=== PATIENT | female | born 1960 | race Caucasian/White ===

== ENCOUNTER → 2018-01-09 07:26 | Outpatient (CLI) | payer MEDICARE, SELFPAY ==
--- NOTE | 2018-01-09 07:44 | MRI_ITS ---
STUDY: MRI BRAIN WITH AND WITHOUT CONTRAST (ATTENTION INTERNAL AUDITORY CANALS - I.A.C.'s) REASON FOR EXAM: Female, 57 years old. ataxia, headache, tinnitus, nki; x 3 wks. TECHNIQUE: Standardized multiplanar fat and water weighted pulse sequences were obtained. 7 ml of Gadavist contrast material was administered intravenously for the contrast portion of the examination. COMPARISON: None. FINDINGS: Normal bilateral temporal bones. Normal bilateral internal auditory canals. There is no demonstrated intracanalicular or cisternal vestibular schwannoma (acoustic neuroma). There is no enhancement of the bilateral VIIth or VIIIth cranial nerves. Normal bilateral cochlea, vestibules and semicircular canals. Normal size of the ventricles and extra-axial spaces for the patient's age. Normal white matter tracts of the supratentorial brain. Normal bilateral basal ganglia. Normal thalami. Normal flow voids within the major intracranial circulation suggesting patency by spin echo criteria. Normal venous enhancement. There is no enhancing intra-axial or extra-axial abnormality. There is no extra-axial fluid accumulation. Normal sella turcica, pituitary gland, infundibular stalk, optic chiasm and hypothalamus. Normal tectal plate and pineal gland. Normal midbrain, hoda and medulla. Normal cerebellum. Normal basal cisterns. No demonstrated orbital abnormality, within the constraints of a routine brain study. Normal visualized paranasal sinuses. Normal calvarium and skull base. Normal visualized soft tissue structures. Normal visualized upper cervical spine. MRI/Brain W/WO Contrast IMPRESSION: Unremarkable unenhanced and enhanced MRI of the bilateral internal auditory canals (I.A.C's). Electronically Signed: Jose Wheeler MD at 7:25 EST Tel , Service support ,
== END ==
PROVIDERS: Family Provider Family Medicine; PCP Family Medicine; Visit Provider Otolaryngology Otolaryngology/Facial Plastic Surgery
DX: R27.0 Ataxia, unspecified (principal)
CPT/HCPCS: 70553; A9585

== ENCOUNTER → 2018-01-17 13:24 | Outpatient (CLI) | payer OTHER, SELFPAY ==
[2018-01-17 14:27] LABS: Amphetamine Urine VISTA NEGATIVE (<1000 ng/mL); Barbiturate Urine VISTA NEGATIVE (< 200 ng/mL); Benzodiazepine Urine VISTA NEGATIVE (< 200 ng/mL); Cocaine Urine VISTA NEGATIVE (< 300 ng/mL); Ecstacy Urine VISTA NEGATIVE (< 500 ng/mL); Methadone Urine VISTA NEGATIVE (< 300 ng/mL); PCP Urine VISTA NEGATIVE (< 25 ng/mL); THC Urine VISTA NEGATIVE (< 50 ng/mL); Vista UDS pH Range 5
== END ==
PROVIDERS: Family Provider Family Medicine; PCP Family Medicine; Visit Provider Anesthesiology Pain Medicine
DX: S30.0XXA Contusion of lower back and pelvis, initial encounter (principal); S32.2XXA Fracture of coccyx, initial encounter for closed fracture; M99.04 Segmental and somatic dysfunction of sacral region
CPT/HCPCS: 80307

== ENCOUNTER → 2018-06-04 16:18 | Outpatient (CLI) | payer OTHER, SELFPAY ==
[2018-06-04 18:10] LABS: Amphetamine Urine VISTA NEGATIVE (<1000 ng/mL); Barbiturate Urine VISTA NEGATIVE (< 200 ng/mL); Benzodiazepine Urine VISTA NEGATIVE (< 200 ng/mL); Cocaine Urine VISTA NEGATIVE (< 300 ng/mL); Ecstacy Urine VISTA NEGATIVE (< 500 ng/mL); Methadone Urine VISTA NEGATIVE (< 300 ng/mL); PCP Urine VISTA NEGATIVE (< 25 ng/mL); THC Urine VISTA POSITIVE (< 50 ng/mL); Vista UDS pH Range 5
== END ==
PROVIDERS: Family Provider Family Medicine; PCP Family Medicine; Visit Provider Anesthesiology Pain Medicine
DX: S30.0XXA Contusion of lower back and pelvis, initial encounter (principal); M99.04 Segmental and somatic dysfunction of sacral region; S32.2XXA Fracture of coccyx, initial encounter for closed fracture; F11.20 Opioid dependence, uncomplicated
CPT/HCPCS: 80307

== ENCOUNTER → 2018-09-09 12:40 | Outpatient (CLI) | payer OTHER, SELFPAY ==
[2018-09-09 13:51] LABS: Amphetamine Urine VISTA NEGATIVE (<1000 ng/mL); Barbiturate Urine VISTA NEGATIVE (< 200 ng/mL); Benzodiazepine Urine VISTA NEGATIVE (< 200 ng/mL); Cocaine Urine VISTA NEGATIVE (< 300 ng/mL); Ecstacy Urine VISTA NEGATIVE (< 500 ng/mL); Methadone Urine VISTA NEGATIVE (< 300 ng/mL); PCP Urine VISTA NEGATIVE (< 25 ng/mL); THC Urine VISTA NEGATIVE (< 50 ng/mL); Vista UDS pH Range 5
== END ==
LOC: LAB 12:42
PROVIDERS: Family Provider Family Medicine; PCP Family Medicine; Referring Provider Anesthesiology Pain Medicine; Visit Provider Anesthesiology Pain Medicine
DX: M99.04 Segmental and somatic dysfunction of sacral region (principal)
CPT/HCPCS: 80307

== ENCOUNTER → 2018-12-09 10:13 | Outpatient (CLI) | payer MEDICARE, SELFPAY ==
--- NOTE | 2018-12-09 10:28 | RAD_ITS ---
STUDY: X-RAY - LUMBAR SPINE REASON FOR EXAM: Female, 58 years old. Low back pain TECHNIQUE: 2 view(s) of the lumbar spine were obtained. COMPARISON: 05/06/2014 FINDINGS: Normal lumbar lordosis. There is no substantial scoliosis. There is a normal alignment of the vertebrae. Normal vertebral bodies and endplates. Mild narrowing of the disc at L5-S1. Otherwise normal disc space heights. There is no demonstrated fracture. The soft tissue structures are unremarkable. RAD/Lumbar Spine 2 or 3 Views IMPRESSION: Very limited two-view study of the spine shows no acute abnormality. Mild degenerative disc disease at L5-S1. Electronically Signed: Scott Wilhelm MD at 21:44 EST , Service support ,
== END ==
PROVIDERS: Family Provider Family Medicine; PCP Family Medicine; Referring Provider Anesthesiology Pain Medicine; Visit Provider Anesthesiology Pain Medicine
DX: M54.9 Dorsalgia, unspecified (principal)
CPT/HCPCS: 72100

== ENCOUNTER → 2024-01-25 | Outpatient (CLI) | payer MEDICARE, SELFPAY ==
[2024-01-25 15:52] LABS: Absolute Lymphocyte Count 1.91 X10^3/uL (0.83-4.51); Absolute Neutrophil Count 9.9 X10^3/uL (2.0-7.7); Basophil# 0.09 X10^3/uL; Basophil% 0.6 % (0-1); Eosinophil# 0.04 X10^3/uL; Eosinophils% 0.3 % (0-5); Hematocrit 32.1 % (37-47); Hemoglobin 10.4 g/dL (12.0-15.0); Lymphocyte # 1.91 X10^3/ul (0.83-4.51); Lymphocyte % 13.4 % (19-41); Mean Corp Hgb Conc 32.4 g/dL (32-36); Mean Corpuscular Hgb 26.7 pg (27.0-32.0); Mean Corpuscular Volume 82.3 fL (81-99); Mean Platelet Vol. 11.2 fl (6.2-12.0); Monocyte# 1.77 X10^3/uL; Monocyte% 12.4 % (0-10); NRBC Flagged by Analyzer 0 % (0-5); Neutrophil # 9.91 X10^3/uL (2.7-7.7); Neutrophil % 69.2 % (47-70); POSITIVE DIFFERENTIAL YES; POSITIVE MORPHOLOGY YES; Platelet Count 675 K/mm3 (150-450); RBC Distribution Width CV 20.9 % (11.6-14.6); RBC Distribution Width SD 55.3 fl (35.1-43.9); White Blood Count 14.3 K/mm3 (4.4-11.0)
[2024-01-25 15:54] LABS: Differential Indicated SCAN CRITERIA MET
[2024-01-25 16:16] LABS: AST(SGOT) 14 U/L (15-37); Alanine Aminotransfer ALT/SGPT 15 U/L (13-56); Albumin, Serum 3.7 g/dL (3.2-5.0); Alkaline Phosphatase 139 U/L (45-117); Anion Gap 6 (5-15); BUN 11 mg/dL (7-18); BUN/Creat Ratio 11.8 RATIO (10-20); Calcium,Total 9.7 mg/dL (8.5-10.1); Chloride 104 mmol/L (98-107); Creatinine, Serum 0.94 mg/dL (0.55-1.02); EST Glomerular Filtration Rate 64 mL/min (>60); Est Glom Filt Rate - Afr Amer 77 mL/min (>60); Globulin 3.8 g/dL (2.2-4.2); Glucose 75 mg/dL (74-106); Protein, Total 7.5 g/dL (6.4-8.2); Rheumatoid Factor < 10.0 IU/mL (<15); Sodium Level 138 mmol/L (136-145)
[2024-01-25 16:19] LABS: Differential Comment SCANNED
[2024-01-25 16:47] LABS: Hepatitis B Surface Antibody Non-Reactive; Hepatitis B Surface Antigen Non-Reactive (Nonreactive); Hepatitis C Antibody Non-Reactive (Nonreactive)
[2024-01-28 13:08] LABS: CCP IgG Antibodies 5 units (0-19)
[2024-01-29 09:29] LABS: Pathologist Review Reviewed
== END | disposition home or self-care (01) ==
PROVIDERS: PCP Family Medicine; Referring Provider Internal Medicine Rheumatology; Visit Provider Internal Medicine Rheumatology
DX: M05.79 Rheumatoid arthritis with rheumatoid factor of multiple sites without organ or systems involvement (principal); M79.7 Fibromyalgia; Z79.899 Other long term (current) drug therapy
CPT/HCPCS: 36415; 80053; 85025; 86200; 86431; 86706; 86803; 87340

== ENCOUNTER → 2024-04-08 | Outpatient (CLI) | payer MEDICARE, SELFPAY ==
[2024-04-08 09:52] LABS: Hematocrit 29.6 % (37-47); Hemoglobin 9.7 g/dL (12.0-15.0); Mean Corpuscular Hgb 27.9 pg (27.0-32.0); Mean Corpuscular Volume 85.1 fL (81-99); Red Blood Count 3.48 M/mm3 (4.2-5.4)
[2024-04-08 09:53] LABS: Mean Corp Hgb Conc 32.8 g/dL (32-36); Mean Platelet Vol. 11.1 fl (6.2-12.0); POSITIVE COUNT YES; POSITIVE DIFFERENTIAL YES; POSITIVE MORPHOLOGY YES; Platelet Count 346 K/mm3 (150-450); RBC Distribution Width CV 20.7 % (11.6-14.6); RBC Distribution Width SD 58.5 fl (35.1-43.9)
[2024-04-08 10:00] LABS: Differential Indicated MANUAL DIFF
[2024-04-08 10:34] LABS: Lymphocyte 19 % (19-41); Metamyelocyte 2 % (0-1); Monocyte 13 % (0-10); Neutrophil-Segmented 66 % (47-70); Total Cells Counted 100 (MANUAL DIFF)
[2024-04-08 10:35] LABS: Acanthocytes 1+; Schistocytes 1+
[2024-04-08 10:36] LABS: Anisocytosis 1+; Microcytosis 1+
[2024-04-08 10:37] LABS: ALB/GLOB Ratio 1.1 RATIO (0.9-2.4); AST(SGOT) 18 U/L (15-37); Alanine Aminotransfer ALT/SGPT 29 U/L (13-56); Albumin, Serum 3.6 g/dL (3.2-5.0); Alkaline Phosphatase 123 U/L (45-117); Anion Gap 8 (5-15); BUN 8 mg/dL (7-18); BUN/Creat Ratio 8.7 RATIO (10-20); Calcium,Total 9.1 mg/dL (8.5-10.1); Chloride 104 mmol/L (98-107); Creatinine, Serum 0.92 mg/dL (0.55-1.02); EST Glomerular Filtration Rate 65 mL/min (>60); Est Glom Filt Rate - Afr Amer 79 mL/min (>60); Globulin 3.4 g/dL (2.2-4.2); Glucose 86 mg/dL (74-106); Pathologist Review May foll; Sodium Level 137 mmol/L (136-145)
[2024-04-08 10:38] LABS: Absolute Lymphocyte Count 2.99 X10^3/uL (0.83-4.51); Absolute Neutrophil Count 10.4 X10^3/uL (2.0-7.7)
[2024-04-08 13:27] LABS: White Blood Count 15.7 K/mm3 (4.4-11.0)
== END | disposition home or self-care (01) ==
LOC: MTLAB 09:03
PROVIDERS: PCP Family Medicine; Referring Provider Internal Medicine Rheumatology; Visit Provider Internal Medicine Rheumatology
DX: M05.79 Rheumatoid arthritis with rheumatoid factor of multiple sites without organ or systems involvement (principal); Z79.899 Other long term (current) drug therapy; M79.7 Fibromyalgia; M47.897 Other spondylosis, lumbosacral region; K21.9 Gastro-esophageal reflux disease without esophagitis; E03.9 Hypothyroidism, unspecified; F41.9 Anxiety disorder, unspecified; F32.A Depression, unspecified; J30.2 Other seasonal allergic rhinitis
CPT/HCPCS: 36415; 80053; 85025

== ENCOUNTER → 2024-06-10 | Outpatient (CLI) | payer MEDICARE, SELFPAY ==
[2024-06-10 12:11] LABS: Absolute Lymphocyte Count 1.77 X10^3/uL (0.83-4.51); Basophil# 0.07 X10^3/uL; Basophil% 0.6 % (0-1); Eosinophil# 0.03 X10^3/uL; Eosinophils% 0.3 % (0-5); Hematocrit 23.8 % (37-47); Hemoglobin 7.7 g/dL (12.0-15.0); Lymphocyte # 1.77 X10^3/ul (0.83-4.51); Mean Corp Hgb Conc 32.4 g/dL (32-36); Mean Corpuscular Hgb 27.9 pg (27.0-32.0); Mean Corpuscular Volume 86.2 fL (81-99); Monocyte# 1.64 X10^3/uL; Monocyte% 14.9 % (0-10); NRBC Flagged by Analyzer 1.9 % (0-5); Neutrophil # 6.99 X10^3/uL (2.7-7.7); Neutrophil % 63.3 % (47-70); POSITIVE DIFFERENTIAL YES; Platelet Count 111 K/mm3 (150-450); RBC Distribution Width CV 19.7 % (11.6-14.6); RBC Distribution Width SD 58.9 fl (35.1-43.9); Red Blood Count 2.76 M/mm3 (4.2-5.4)
[2024-06-10 12:13] LABS: Differential Indicated SCAN CRITERIA MET
[2024-06-10 12:26] LABS: ALB/GLOB Ratio 0.9 RATIO (0.9-2.4); AST(SGOT) 19 U/L (15-37); Alanine Aminotransfer ALT/SGPT 24 U/L (13-56); Albumin, Serum 3.2 g/dL (3.2-5.0); Alkaline Phosphatase 199 U/L (45-117); Anion Gap 9 (5-15); BUN 7 mg/dL (7-18); BUN/Creat Ratio 8.6 RATIO (10-20); Calcium,Total 8.8 mg/dL (8.5-10.1); Chloride 103 mmol/L (98-107); Creatinine, Serum 0.81 mg/dL (0.55-1.02); EST Glomerular Filtration Rate 75 mL/min (>60); Est Glom Filt Rate - Afr Amer 91 mL/min (>60); Globulin 3.6 g/dL (2.2-4.2); Glucose 93 mg/dL (74-106); Potassium 3.6 mmol/L (3.5-5.1); Protein, Total 6.8 g/dL (6.4-8.2); Sodium Level 136 mmol/L (136-145)
[2024-06-10 12:48] LABS: Anisocytosis 1+; Differential Comment SCANNED; Hypochromasia 1+; Microcytosis 1+; Platelet Estimate SLT DEC (ADEQ); Polychromasia 2+
[2024-06-10 12:49] LABS: Bite Cell 1+; Schistocytes 1+; Tear Drop Cell 2+
[2024-06-11 13:36] LABS: Pathologist Review Reviewed
== END | disposition home or self-care (01) ==
LOC: LAB 09:11 → MTLAB 13:10
PROVIDERS: PCP Family Medicine; Referring Provider Internal Medicine Rheumatology; Visit Provider Internal Medicine Rheumatology
DX: M05.79 Rheumatoid arthritis with rheumatoid factor of multiple sites without organ or systems involvement (principal); Z79.899 Other long term (current) drug therapy
CPT/HCPCS: 36415; 80053; 85025

== ENCOUNTER 2024-06-11 13:27 | Emergency (ER) | payer MEDICARE, SELFPAY ==
[2024-06-11 13:29] VITALS: BP 108/49; PULSE 95; RESP 16; TEMP 36.1; O2SAT 97; BMI 23.9
[2024-06-11 13:57] LABS: Absolute Lymphocyte Count 0.96 X10^3/uL (0.83-4.51); Absolute Neutrophil Count 4.6 X10^3/uL (2.0-7.7); Basophil# 0.04 X10^3/uL; Basophil% 0.6 % (0-1); Eosinophil# 0.01 X10^3/uL; Eosinophils% 0.1 % (0-5); Hematocrit 24.2 % (37-47); Hemoglobin 7.9 g/dL (12.0-15.0); Lymphocyte # 0.96 X10^3/ul (0.83-4.51); Lymphocyte % 14.4 % (19-41); Mean Corp Hgb Conc 32.6 g/dL (32-36); Mean Corpuscular Hgb 27.7 pg (27.0-32.0); Mean Corpuscular Volume 84.9 fL (81-99); Monocyte# 0.77 X10^3/uL; Monocyte% 11.5 % (0-10); NRBC Flagged by Analyzer 1.2 % (0-5); Neutrophil # 4.56 X10^3/uL (2.7-7.7); Neutrophil % 68.5 % (47-70); POSITIVE MORPHOLOGY YES; Platelet Count 125 K/mm3 (150-450); RBC Distribution Width CV 19.6 % (11.6-14.6); RBC Distribution Width SD 57.2 fl (35.1-43.9); Red Blood Count 2.85 M/mm3 (4.2-5.4); White Blood Count 6.7 K/mm3 (4.4-11.0)
[2024-06-11 13:58] LABS: Differential Indicated SCAN CRITERIA MET
[2024-06-11 14:16] LABS: Anion Gap 7 (5-15); BUN 9 mg/dL (7-18); BUN/Creat Ratio 10.3 RATIO (10-20); Calcium,Total 8.4 mg/dL (8.5-10.1); Chloride 105 mmol/L (98-107); Creatinine, Serum 0.87 mg/dL (0.55-1.02); EST Glomerular Filtration Rate 69 mL/min (>60); Est Glom Filt Rate - Afr Amer 84 mL/min (>60); Estimated Creatinine Clearance 54.04 ml/min; Glucose 109 mg/dL (74-106); Sodium Level 137 mmol/L (136-145)
[2024-06-11 14:17] LABS: Atypical Lymphocyte 1+ %
[2024-06-11 14:32] VITALS: BP 117/71; PULSE 89; RESP 28; O2SAT 100
--- NOTE | 2024-06-11 14:47 | EX.ED.DYSGE1 ---
HPI History of Present Illness Chief Complaint: Abn Labs [facility] Medical History (Updated 06/11/24 @ 14:31 by Danitza Echeverria) Anxiety GERD (gastroesophageal reflux disease) Hypothyroid Rheumatoid arthritis Allergy/AdvReac Type Severity Reaction Status Date / Time mold Allergy Intermediate Shortness Verified 06/11/24 13:29 of breath acetaminophen (From Percocet) AdvReac Intermediate Nausea Verified 06/11/24 13:29 hydrocodone (From Vicodin) AdvReac Intermediate Nausea Verified 06/11/24 13:29 oxycodone (From Percocet) AdvReac Intermediate Nausea Verified 06/11/24 13:29 Social History Smoking Status: Former smoker EXAM Physical Exam Const Vital Signs: 06/11/24 13:29 06/11/24 14:31 06/11/24 14:32 Temperature 97 F L Temperature Source Temporal Pulse Rate 95 89 Respiratory Rate 16 28 H Respiratory Effort Normal Non-Labored Respiratory Pattern Normal Blood Pressure 108/49 L 117/71 Blood Pressure Mean 68 86 Pulse Ox 97 100 Oxygen Delivery Method Room Air Room Air 06/11/24 16:00 06/11/24 16:58 Temperature 97.4 F L Temperature Source Pulse Rate 82 74 Respiratory Rate 21 H 16 Respiratory Effort Respiratory Pattern Blood Pressure 111/63 124/71 H Blood Pressure Mean 79 88 Pulse Ox 100 99 Oxygen Delivery Method Room Air MDM MDM MDM Narrative Medical decision making narrative: HISTORY OF PRESENT ILLNESS: 63-year-old female who presents with concern for very very low hemoglobin. Notes some fatigue and dyspnea on exertion. Denies any shortness of breath or chest pain currently. Denies any leg swelling. Denies any bleeding diathesis patient did take any blood thinners. Notes colonoscopy probably 6 months ago with polyps removed however was poor preparation per her report. REVIEW OF SYSTEMS: Pertinent positives: Fatigue, dyspnea on exertion Pertinent negatives: Chest pain, shortness breath, leg swelling PHYSICAL EXAM: Nursing triage notes reviewed, Vital signs reviewed Constitutional: please see mdm HENT: MMM Eyes: Pupils equal round and reactive to light, Extraocular muscles intact Neck: No stridor, no JVD, full neck ROM Lungs: Clear to auscultation, No wheezing or rales. No increased work of breathing, no conversational dyspnea, no accessory muscle use, no nasal flaring. No respiratory distress noted Heart: Regular rate and rhythm, No murmurs, No rubs and No gallops, 2+ distal pulses (radial, femoral, posterior tibial) in all extremities Abdomen: Soft, there is no tenderness, rigidity, rebound or guarding, no obvious peritoneal signs, no palpable pulsatile abdominal masses, no auscultated abdominal bruit : No CVAT Extremities: No edema Rectal: Performed with associate partner Neuro: No focal neurological deficits, cranial nerves II through XII intact, 5/5 strength in all extremities. Intact sensation to light touch in all extremities, 2+ reflexes bilateral patella tendons. Normal gait. No ataxia. Skin: No rash or lesions noted MEDICAL DECISION MAKING: Chief Complaint: Concern for low hemoglobin External records reviewed: Reviewed labs from 06/10/2024. Hemoglobin at that time was 7.7. Baseline hemoglobin based on labs from April 2024 was 9.7. Factors affecting care: Anxiety, GERD, rheumatoid arthritis Social determinants of health: none History obtained from others: none Consults: none MDM Narrative: The patient was initially hemodynamically stable, she is tachypneic with a rate of 28, she is afebrile. Exam without pallor. Rectal exam without melena hematochezia or hemorrhoid. I considered the following differential diagnosis: Anemia, electrolyte disturbance ALL IMAGES (IF OBTAINED) HAVE BEEN PERSONALLY REVIEWED AND INTERPRETED BY MYSELF. CBC with hemoglobin of 7.9, no leukocytosis, noted thrombocytopenia BMP without evidence of significant electrolyte abnormalities, no anion gap, no acute kidney injury (Noted mild hypokalemia, replaced with oral potassium) Rectal exam without obvious melena or hematochezia. Stool occult negative Suspect patient suffering from likely iron deficiency or other vitamin deficiency anemia (folate, B12). No emergent indication for blood transfusion at this time. Encouraged PCP follow-up for further testing and possible iron supplementation. Encouraged p.o. potassium supplementation in the form of Body Armor, Pedialyte or vegetables. The patient and/or family, caregivers express understanding. The patient and/or family, caregivers agrees with the plan. Shared decision making: I will have a discussion with the patient and or visitors regarding risk/benefits of further testing or admission. They will be made aware of of the risk/benefits inherent in this decision they will be given the opportunity to voice understanding. Total critical care time today provided was at least 0 minutes. This excludes separately billable procedures. Critical care time (if documented) is secondary to the patient having high probability of clinically significant/life threatening deterioration in the patient's condition which required my urgent intervention. Impression: 1. Anemia 2. Hypokalemia Dispo: Discharge home This note was generated with [employer]ep[employer]! dictation software. It may contain incorrect words, spelling, and punctuation that were not noted in review of the chart prior to signing. Lab Data Labs: Laboratory Results - last 24 hr 06/11/24 13:49 WBC 6.7 RBC 2.85 L Hgb 7.9 L Hct 24.2 L MCV 84.9 MCH 27.7 MCHC 32.6 RDW Std Deviation 57.2 H RDW Coeff of Kylee 19.6 H Plt Count 125 L Immature Gran % (Auto) 4.900 H Neut % (Auto) 68.5 Lymph % (Auto) 14.4 L [place] % (Auto) 11.5 H Eos % (Auto) 0.1 Baso % (Auto) 0.6 Absolute Neuts (auto) 4.6 Absolute Lymphs (auto) 0.96 Nucleated RBC % 1.2 Atypical Lymphocytes 1+ Sodium 137 Potassium 3.0 L Chloride 105 Carbon Dioxide 25.0 Anion Gap 7 BUN 9 Creatinine 0.87 Estim Creat Clear Calc 54.04 Est GFR (MDRD) Af Amer 84 Est GFR (MDRD) Non-Af 69 BUN/Creatinine Ratio 10.3 Glucose 109 H Calcium 8.4 L Discharge Plan Triage Chief Complaint: Abn Labs ED Provider: Jean-Pierre Sheldon Dx/Rx/DC Orders Instructions: Anemia, ED Hypokalemia Primary Care Provider: Kamar Thomas Referrals: Kamar Thomas MD [Primary Care Provider] - Activity Restrictions/Additional Instructions: Thank you for trusting us with your care today! Please take Tylenol (2 pills, 650 mg), ibuprofen (2 pills, 400 mg) every 6 hours as needed for pain and fever control. Please return to the emergency department if your symptoms change or worsen. Please follow with your primary care physician for further outpatient evaluation and management. Print Language: Malay Disposition Disposition: Home, Self Care Discharge Date/Time: 06/11/24 16:59
[2024-06-11 16:00] VITALS: BP 111/63; PULSE 82; RESP 21; O2SAT 100
[2024-06-11] MEDS: Potassium Chloride Oral Tablet 20 MEQ 60 MEQ PO (16:53)
[2024-06-11 16:58] VITALS: BP 124/71; PULSE 74; RESP 16; TEMP 36.3; O2SAT 99
== END 2024-06-11 16:59 | disposition home or self-care (01) ==
PROVIDERS: Emergency Provider Emergency Medicine; PCP Family Medicine; Visit Provider Emergency Medicine
DX: D64.9 Anemia, unspecified (principal); E87.6 Hypokalemia; Z87.891 Personal history of nicotine dependence
CPT/HCPCS: 80048; 82274; 85025; 99283; A4216

== ENCOUNTER 2024-10-07 08:37 | Outpatient (CLI) | payer MEDICARE, SELFPAY ==
[2024-10-07 08:44] VITALS: BP 109/60; PULSE 90; RESP 18; TEMP 36.2; O2SAT 100; BMI 21.4
[2024-10-07 09:35] VITALS: BP 102/55; PULSE 84; RESP 16; TEMP 36.6; O2SAT 100
[2024-10-07 10:35] VITALS: BP 108/56; PULSE 86; RESP 16; TEMP 36.6; O2SAT 100
[2024-10-07 11:48] VITALS: BP 106/59; PULSE 81; RESP 16; TEMP 35.7; O2SAT 100
[2024-10-07 12:44] VITALS: BP 129/64; PULSE 77; RESP 16; TEMP 36.4; O2SAT 100
[2024-10-07 13:13] VITALS: BP 127/62; PULSE 81; RESP 16; TEMP 36.6; O2SAT 100
== END 2024-10-07 23:59 | disposition home or self-care (01) ==
LOC: MEDOUTP 08:37
PROVIDERS: PCP Family Medicine; Referring Provider Internal Medicine Hematology & Oncology; Visit Provider Internal Medicine Hematology & Oncology
DX: D61.818 Other pancytopenia (principal)
CPT/HCPCS: 36430; 86850; 86900; 86901; 86920; 86922; P9016; A4216

== ENCOUNTER → 2024-10-16 | Outpatient (CLI) | payer MEDICARE, SELFPAY | END | disposition home or self-care (01) | LOC: LABSPEC 12:05 | PROVIDERS: PCP Family Medicine; Visit Provider Internal Medicine Hematology & Oncology | DX: D61.818 Other pancytopenia (principal) | CPT/HCPCS: 86850; 86900; 86901; 86920; 86922 ==

== ENCOUNTER 2024-10-17 07:50 | Outpatient (CLI) | payer MEDICARE, SELFPAY ==
[2024-10-17] VITALS (7 sets, daily range): BP systolic 79–134; BP diastolic 53–88; PULSE 74–87; RESP 16–18; TEMP 36–36.6; O2SAT 99–100; BMI 22.8
== END 2024-10-17 23:59 | disposition home or self-care (01) ==
LOC: MEDOUTP 07:50
PROVIDERS: PCP Family Medicine; Referring Provider Internal Medicine Hematology & Oncology; Visit Provider Internal Medicine Hematology & Oncology
DX: D61.818 Other pancytopenia (principal)
CPT/HCPCS: 36430; 86644; 86850; 86900; 86901; 86920; 86922; P9040; A4216

== ENCOUNTER 2024-10-30 10:24 | Outpatient (CLI) | payer MEDICARE, SELFPAY ==
[2024-10-30 10:41] VITALS: BP 105/55; PULSE 89; RESP 16; TEMP 36.4; O2SAT 100; BMI 21.4
[2024-10-30 11:36] VITALS: BP 92/52; PULSE 92; RESP 16; TEMP 36.3; O2SAT 100
[2024-10-30 12:36] VITALS: BP 105/56; PULSE 83; RESP 16; TEMP 36.3; O2SAT 100
[2024-10-30 13:25] VITALS: BP 112/53; PULSE 85; RESP 16; TEMP 36.2
== END 2024-10-30 23:59 | disposition home or self-care (01) ==
LOC: MEDOUTP 10:24
PROVIDERS: PCP Family Medicine; Referring Provider Specialist; Visit Provider Specialist
DX: D61.818 Other pancytopenia (principal)
CPT/HCPCS: 36430; 86850; 86900; 86901; 86920; 86922; P9040; A4216

== ENCOUNTER 2024-11-11 08:20 | Outpatient (CLI) | payer MEDICARE, SELFPAY ==
[2024-11-11] VITALS (7 sets, daily range): BP systolic 86–127; BP diastolic 52–74; PULSE 78–90; RESP 16; TEMP 36.2–37.1; O2SAT 100; BMI 21.2
== END 2024-11-11 23:59 | disposition home or self-care (01) ==
LOC: MEDOUTP 08:22
PROVIDERS: PCP Family Medicine; Referring Provider Internal Medicine Hematology & Oncology; Visit Provider Internal Medicine Hematology & Oncology
DX: D61.818 Other pancytopenia (principal)
CPT/HCPCS: 36430; 86850; 86900; 86901; P9040; A4216

== ENCOUNTER 2024-12-16 08:37 | Outpatient (CLI) | payer MEDICARE, SELFPAY ==
[2024-12-16 09:03] VITALS: BP 93/61; PULSE 80; RESP 16; TEMP 35.9; O2SAT 100; BMI 18.0
[2024-12-16 09:38] VITALS: BP 107/57; PULSE 71; RESP 16; TEMP 36.1; O2SAT 100
[2024-12-16 10:38] VITALS: BP 104/49; PULSE 73; RESP 16; TEMP 36.5; O2SAT 99
[2024-12-16 11:46] VITALS: BP 96/55; PULSE 78; RESP 16; TEMP 36.1; O2SAT 98
[2024-12-16 13:17] VITALS: BP 116/66; PULSE 70; RESP 16; TEMP 36.6; O2SAT 92
[2024-12-16 13:54] VITALS: BP 105/60; PULSE 79; RESP 16; TEMP 36.4; O2SAT 99
== END 2024-12-16 23:59 | disposition home or self-care (01) ==
LOC: MEDOUTP 08:37
PROVIDERS: PCP Family Medicine; Referring Provider Internal Medicine Hematology & Oncology; Visit Provider Internal Medicine Hematology & Oncology
DX: D61.818 Other pancytopenia (principal)
CPT/HCPCS: 36430; 86850; 86900; 86901; P9016; A4216

== ENCOUNTER 2024-12-26 09:32 | Outpatient (CLI) | payer MEDICARE, SELFPAY ==
[2024-12-26 10:11] VITALS: BP 93/49; PULSE 88; RESP 16; TEMP 36.3; O2SAT 100
[2024-12-26 11:53] VITALS: BP 95/70; PULSE 80; RESP 16; TEMP 36.7; O2SAT 100
[2024-12-26 12:25] VITALS: BP 93/47; PULSE 89; RESP 16; TEMP 36.7; O2SAT 100
== END 2024-12-26 23:59 | disposition home or self-care (01) ==
LOC: MEDOUTP 09:32
PROVIDERS: PCP Family Medicine; Referring Provider Internal Medicine Hematology & Oncology; Visit Provider Internal Medicine Hematology & Oncology
DX: D61.818 Other pancytopenia (principal)
CPT/HCPCS: 36430; 86850; 86900; 86901; P9016; A4216

== ENCOUNTER 2025-01-06 08:14 | Outpatient (CLI) | payer MEDICARE, SELFPAY ==
[2025-01-06 08:35] VITALS: BP 92/55; PULSE 97; RESP 16; TEMP 36.3; O2SAT 100; BMI 17.3
[2025-01-06 09:06] VITALS: BP 104/43; PULSE 90; RESP 16; TEMP 36.1
[2025-01-06 10:08] VITALS: BP 114/45; PULSE 89; RESP 14; TEMP 36.7; O2SAT 100
[2025-01-06 11:08] VITALS: BP 106/48; PULSE 92; RESP 16; TEMP 36.9; O2SAT 98
[2025-01-06 12:08] VITALS: BP 118/52; PULSE 93; RESP 16; TEMP 36.6; O2SAT 100
[2025-01-06 13:08] VITALS: BP 140/47; PULSE 92; RESP 16; TEMP 36.6
== END 2025-01-06 23:59 | disposition home or self-care (01) ==
LOC: MEDOUTP 08:14
PROVIDERS: PCP Family Medicine; Referring Provider Internal Medicine Hematology & Oncology; Visit Provider Internal Medicine Hematology & Oncology
DX: D61.818 Other pancytopenia (principal)
CPT/HCPCS: 36430; 86850; 86900; 86901; P9040; A4216

== ENCOUNTER 2025-02-03 10:47 | Outpatient (CLI) | payer MEDICARE, SELFPAY ==
[2025-02-03 11:06] VITALS: BP 104/55; PULSE 90; RESP 16; TEMP 36.6; O2SAT 100; BMI 16.5
[2025-02-03 11:35] VITALS: BP 93/50; PULSE 90; RESP 16; TEMP 36.6
[2025-02-03 12:35] VITALS: BP 111/53; PULSE 79; RESP 16; TEMP 36.4
[2025-02-03 13:06] VITALS: BP 108/58; PULSE 80; RESP 16; TEMP 36.5
== END 2025-02-03 23:59 | disposition home or self-care (01) ==
PROVIDERS: PCP Family Medicine; Referring Provider Internal Medicine Hematology & Oncology; Visit Provider Internal Medicine Hematology & Oncology
DX: D61.818 Other pancytopenia (principal)
CPT/HCPCS: 36430; 86850; 86900; 86901; P9040; A4216

== ENCOUNTER 2025-02-06 07:34 | Outpatient (CLI) | payer MEDICARE, SELFPAY ==
[2025-02-06 07:51] VITALS: BP 94/58; PULSE 90; RESP 16; TEMP 37.1; O2SAT 100
[2025-02-06 08:35] VITALS: BP 89/54; PULSE 82; RESP 16; TEMP 37.2; O2SAT 99
[2025-02-06 09:15] VITALS: BP 92/59; PULSE 84; RESP 16; TEMP 36.9; O2SAT 100
[2025-02-06 10:11] VITALS: BP 88/45; PULSE 90; RESP 16; TEMP 36.8; O2SAT 100
[2025-02-06 10:46] VITALS: BP 88/56; PULSE 90; RESP 16; TEMP 36.9; O2SAT 100
== END 2025-02-06 23:59 | disposition home or self-care (01) ==
LOC: MEDOUTP 07:34
PROVIDERS: PCP Family Medicine; Referring Provider Internal Medicine Hematology & Oncology; Visit Provider Internal Medicine Hematology & Oncology
DX: D61.818 Other pancytopenia (principal)
CPT/HCPCS: 36430; 86850; 86900; 86901; 86920; 86922; 86965; P9035; P9040; A4216

== ENCOUNTER 2025-02-10 08:11 | Outpatient (CLI) | payer MEDICARE, SELFPAY ==
[2025-02-10] VITALS (9 sets, daily range): BP systolic 83–116; BP diastolic 36–66; PULSE 78–85; RESP 14–16; TEMP 36.3–36.8; O2SAT 98–100
== END 2025-02-10 23:59 | disposition home or self-care (01) ==
LOC: MEDOUTP 08:11
PROVIDERS: PCP Family Medicine; Referring Provider Internal Medicine Hematology & Oncology; Visit Provider Internal Medicine Hematology & Oncology
DX: D61.818 Other pancytopenia (principal)
CPT/HCPCS: 36430; 86850; 86900; 86901; 86965; P9035; P9040; A4216

== ENCOUNTER 2025-02-13 08:10 | Outpatient (CLI) | payer MEDICARE, SELFPAY ==
[2025-02-13 08:23] VITALS: BP 92/69; PULSE 85; RESP 16; TEMP 36.4; O2SAT 97; BMI 15.5
[2025-02-13 08:54] VITALS: BP 105/64; PULSE 87; RESP 16; TEMP 35.8; O2SAT 100
[2025-02-13 09:07] VITALS: BP 98/62; PULSE 86; RESP 14; TEMP 36.4; O2SAT 100
== END 2025-02-13 23:59 | disposition home or self-care (01) ==
LOC: MEDOUTP 08:10
PROVIDERS: PCP Family Medicine; Referring Provider Internal Medicine Hematology & Oncology; Visit Provider Internal Medicine Hematology & Oncology
DX: D61.818 Other pancytopenia (principal)
CPT/HCPCS: 36430; 86900; 86901; 86965; P9035; A4216

== ENCOUNTER 2025-02-17 09:04 | Outpatient (CLI) | payer MEDICARE, SELFPAY ==
[2025-02-17 09:28] VITALS: BP 99/57; PULSE 98; RESP 16; TEMP 36.6; O2SAT 100
[2025-02-17 09:55] VITALS: BP 97/52; PULSE 87; RESP 16; TEMP 36.4; O2SAT 100
[2025-02-17 11:13] VITALS: BP 115/63; PULSE 77; RESP 16; TEMP 36.2; O2SAT 100
== END 2025-02-17 23:59 | disposition home or self-care (01) ==
LOC: MEDOUTP 09:04
PROVIDERS: PCP Family Medicine; Referring Provider Internal Medicine Hematology & Oncology; Visit Provider Internal Medicine Hematology & Oncology
DX: D61.818 Other pancytopenia (principal)
CPT/HCPCS: 36430; 86850; 86900; 86901; P9040; A4216

== ENCOUNTER 2025-02-24 07:40 | Outpatient (CLI) | payer MEDICARE, SELFPAY ==
[2025-02-24] VITALS (7 sets, daily range): BP systolic 93–116; BP diastolic 49–61; PULSE 68–89; RESP 16; TEMP 36.1–36.4; O2SAT 97–100
== END 2025-02-24 23:59 | disposition home or self-care (01) ==
LOC: MEDOUTP 07:40
PROVIDERS: PCP Family Medicine; Referring Provider Internal Medicine Hematology & Oncology; Visit Provider Internal Medicine Hematology & Oncology
DX: D61.818 Other pancytopenia (principal)
CPT/HCPCS: 36430; 86850; 86900; 86901; P9040; A4216

== ENCOUNTER 2025-03-03 07:44 | Outpatient (CLI) | payer MEDICARE, SELFPAY ==
[2025-03-03 07:59] VITALS: BP 82/65; PULSE 88; RESP 16; TEMP 36.7; O2SAT 100
[2025-03-03 08:25] VITALS: BP 102/52; PULSE 81; RESP 16; TEMP 36.6
[2025-03-03 09:25] VITALS: BP 99/41; PULSE 75; RESP 16; TEMP 36.3
[2025-03-03 09:40] VITALS: BP 102/47; PULSE 73; RESP 16; TEMP 36.2; O2SAT 100
[2025-03-03 10:17] VITALS: BP 105/41; PULSE 74; RESP 16; TEMP 36.5
[2025-03-03 11:17] VITALS: BP 110/53; PULSE 71; RESP 16; TEMP 36.2
== END 2025-03-03 23:59 | disposition home or self-care (01) ==
LOC: MEDOUTP 07:44
PROVIDERS: PCP Family Medicine; Referring Provider Internal Medicine Hematology & Oncology; Visit Provider Internal Medicine Hematology & Oncology
DX: D61.818 Other pancytopenia (principal)
CPT/HCPCS: 36430; 86850; 86900; 86901; P9040; A4216

== ENCOUNTER 2025-03-06 10:37 | Outpatient (CLI) | payer MEDICARE, SELFPAY ==
[2025-03-05 13:52] LABS: ALB/GLOB Ratio 1.4 RATIO (0.9-2.4); AST(SGOT) 33 U/L (<=31); Alanine Aminotransfer ALT/SGPT 60 U/L (<=34); Albumin, Serum 3.3 g/dL (3.4-4.8); Alkaline Phosphatase 606 U/L (35-104); Anion Gap 10 (5-15); BUN 15 mg/dL (4-19); BUN/Creat Ratio 21.6 RATIO (10-20); Calcium,Total 8.2 mg/dL (7.6-11.0); Carbon Dioxide 20.5 mmol/L (21.0-32.0); Chloride 101 mmol/L (98-108); Creatinine, Serum 0.69 mg/dL (0.70-1.20); EST Glomerular Filtration Rate 96 (>60); Globulin 2.3 g/dL (2.2-4.2); Glucose 80 mg/dL (70-99); Potassium 3.9 mmol/L (3.3-5.1); Protein, Total 5.7 g/dL (5.9-8.4); Sodium Level 131 mmol/L (133-145); Total Bilirubin 1.36 mg/dL (0.00-1.30)
[2025-03-06 11:34] VITALS: BP 96/56; PULSE 74; RESP 16; TEMP 36.3; O2SAT 100; BMI 15.8
[2025-03-06 11:51] LABS: ALB/GLOB Ratio 1.2 RATIO (0.9-2.4); AST(SGOT) 35 U/L (<=31); Alanine Aminotransfer ALT/SGPT 56 U/L (<=34); Albumin, Serum 3.3 g/dL (3.4-4.8); Alkaline Phosphatase 555 U/L (35-104); Anion Gap 9 (5-15); BUN 17 mg/dL (4-19); BUN/Creat Ratio 22.2 RATIO (10-20); Calcium,Total 8.3 mg/dL (7.6-11.0); Carbon Dioxide 21.4 mmol/L (21.0-32.0); Chloride 102 mmol/L (98-108); Creatinine, Serum 0.74 mg/dL (0.70-1.20); EST Glomerular Filtration Rate 89 (>60); Estimated Creatinine Clearance 44.93 ml/min (50-250); Globulin 2.7 g/dL (2.2-4.2); Glucose 99 mg/dL (70-99); Potassium 3.7 mmol/L (3.3-5.1); Sodium Level 132 mmol/L (133-145)
[2025-03-06 12:06] VITALS: BP 93/55; PULSE 72; RESP 16; TEMP 36.2; O2SAT 100
[2025-03-06 12:26] VITALS: BP 92/57; PULSE 72; RESP 16; TEMP 36.1; O2SAT 100
== END 2025-03-06 23:59 | disposition home or self-care (01) ==
LOC: MEDOUTP 10:37
PROVIDERS: PCP Family Medicine; Referring Provider Internal Medicine Hematology & Oncology; Visit Provider Internal Medicine Hematology & Oncology
DX: D61.818 Other pancytopenia (principal)
CPT/HCPCS: 36430; 36591; 80053; 86900; 86901; 86965; P9035; A4216

== ENCOUNTER 2025-03-10 08:32 | Outpatient (CLI) | payer MEDICARE, SELFPAY ==
[2025-03-10] VITALS (9 sets, daily range): BP systolic 90–119; BP diastolic 46–61; PULSE 67–96; RESP 14–16; TEMP 35.8–36.4; O2SAT 93–100; BMI 15.8
== END 2025-03-10 23:59 | disposition home or self-care (01) ==
LOC: MEDOUTP 08:32
PROVIDERS: PCP Family Medicine; Referring Provider Internal Medicine Hematology & Oncology; Visit Provider Internal Medicine Hematology & Oncology
DX: D61.818 Other pancytopenia (principal)
CPT/HCPCS: 36430; 86850; 86900; 86901; 86965; P9035; P9040; A4216

== ENCOUNTER 2025-03-18 08:56 | Outpatient (CLI) | payer MEDICARE, SELFPAY ==
[2025-03-18 09:03] VITALS: BP 108/53; PULSE 68; RESP 16; TEMP 37; O2SAT 98; BMI 17.3
[2025-03-18 09:47] VITALS: BP 85/56; PULSE 80; RESP 16; TEMP 36.7
[2025-03-18 10:47] VITALS: BP 95/52; PULSE 72; RESP 16; TEMP 36.8
[2025-03-18 11:47] VITALS: BP 98/65; PULSE 68; RESP 16; TEMP 36.2; O2SAT 98
== END 2025-03-18 23:59 | disposition home or self-care (01) ==
LOC: MEDOUTP 08:56
PROVIDERS: PCP Family Medicine; Referring Provider Internal Medicine Hematology & Oncology; Visit Provider Internal Medicine Hematology & Oncology
DX: D61.818 Other pancytopenia (principal)
CPT/HCPCS: 36430; 86850; 86900; 86901; P9040; A4216

== ENCOUNTER 2025-03-27 08:35 | Outpatient (CLI) | payer MEDICARE, SELFPAY ==
[2025-03-27 08:42] VITALS: BP 107/69; PULSE 69; RESP 16; TEMP 36.8; O2SAT 100; BMI 15.5
[2025-03-27 09:24] VITALS: BP 99/56; PULSE 74; RESP 16; TEMP 37.1; O2SAT 98
[2025-03-27 11:06] VITALS: BP 113/60; PULSE 70; RESP 16; TEMP 37.2; O2SAT 100
== END 2025-03-27 23:59 | disposition home or self-care (01) ==
LOC: MEDOUTP 08:36
PROVIDERS: PCP Family Medicine; Referring Provider Internal Medicine Hematology & Oncology; Visit Provider Internal Medicine Hematology & Oncology
DX: D61.818 Other pancytopenia (principal)
CPT/HCPCS: 36430; 86850; 86900; 86901; P9040; A4216

== ENCOUNTER 2025-04-07 07:09 | Outpatient (CLI) | payer MEDICARE, SELFPAY ==
[2025-04-07 07:45] VITALS: BP 92/49; PULSE 79; RESP 14; TEMP 36.3; O2SAT 100; BMI 16.5
[2025-04-07 07:58] VITALS: BP 105/53; PULSE 74; RESP 16; TEMP 36.6
[2025-04-07 09:00] VITALS: BP 111/46; PULSE 72; RESP 16; TEMP 36; O2SAT 100
[2025-04-07 09:44] VITALS: BP 112/58; PULSE 68; RESP 16; TEMP 36.2
== END 2025-04-07 23:59 | disposition home or self-care (01) ==
LOC: MEDOUTP 07:10
PROVIDERS: PCP Family Medicine; Referring Provider Internal Medicine Hematology & Oncology; Visit Provider Internal Medicine Hematology & Oncology
DX: D61.818 Other pancytopenia (principal)
CPT/HCPCS: 36430; 86850; 86900; 86901; P9040; A4216

== ENCOUNTER 2025-04-14 07:46 | Outpatient (CLI) | payer MEDICARE, SELFPAY ==
[2025-04-14 07:55] VITALS: BP 103/55; PULSE 83; RESP 16; TEMP 35.8; O2SAT 100; BMI 16.5
[2025-04-14 08:23] VITALS: BP 109/47; PULSE 78; RESP 16; TEMP 36.2
[2025-04-14 08:34] VITALS: BP 96/49; PULSE 85; RESP 16; TEMP 36.2; O2SAT 98
[2025-04-14 08:56] VITALS: BP 93/46; PULSE 79; RESP 16; TEMP 36.4
[2025-04-14 10:00] VITALS: BP 103/44; PULSE 58; RESP 16; TEMP 36.1; O2SAT 100
[2025-04-14 10:46] VITALS: BP 108/51; PULSE 72; RESP 16
== END 2025-04-14 23:59 | disposition home or self-care (01) ==
LOC: MEDOUTP 07:47
PROVIDERS: PCP Family Medicine; Referring Provider Internal Medicine Hematology & Oncology; Visit Provider Internal Medicine Hematology & Oncology
DX: D61.818 Other pancytopenia (principal)
CPT/HCPCS: 36430; 86850; 86900; 86901; 86965; P9035; P9040; A4216

== ENCOUNTER 2025-04-17 07:31 | Outpatient (CLI) | payer MEDICARE, SELFPAY ==
[2025-04-17 07:47] VITALS: BP 122/59; PULSE 77; RESP 16; TEMP 36.3; O2SAT 100
[2025-04-17 08:19] VITALS: BP 122/56; PULSE 76; RESP 16; O2SAT 100
[2025-04-17 08:34] VITALS: BP 95/52; PULSE 80; RESP 14; TEMP 36.2
[2025-04-17 09:02] VITALS: BP 118/62; PULSE 78; RESP 16; TEMP 36.3
[2025-04-17 09:35] VITALS: BP 115/60; PULSE 80; RESP 16; TEMP 36.3; O2SAT 100
== END 2025-04-17 23:59 | disposition home or self-care (01) ==
LOC: MEDOUTP 07:31
PROVIDERS: PCP Family Medicine; Referring Provider Internal Medicine Hematology & Oncology; Visit Provider Internal Medicine Hematology & Oncology
DX: D61.818 Other pancytopenia (principal)
CPT/HCPCS: 36430; 86900; 86901; 86965; P9035; A4216

== ENCOUNTER 2025-04-21 09:35 | Outpatient (CLI) | payer MEDICARE, SELFPAY ==
[2025-04-21] MEDS: 0.9% NaCl IVPB Med Flush (100mL) 15 ML IV (09:58)
[2025-04-21 10:01] VITALS: BP 111/57; PULSE 75; RESP 16; TEMP 36.3; O2SAT 100; BMI 16.9
[2025-04-21 10:27] VITALS: BP 114/53; PULSE 69; RESP 16; TEMP 36.4; O2SAT 100
[2025-04-21 11:25] VITALS: BP 114/61; PULSE 65; RESP 16; TEMP 36.1; O2SAT 100
== END 2025-04-21 23:59 | disposition home or self-care (01) ==
LOC: MEDOUTP 09:35
PROVIDERS: PCP Family Medicine; Referring Provider Internal Medicine Hematology & Oncology; Visit Provider Internal Medicine Hematology & Oncology
DX: D61.818 Other pancytopenia (principal)
CPT/HCPCS: 36430; 86850; 86900; 86901; P9040; A4216

== ENCOUNTER 2025-04-24 07:46 | Outpatient (CLI) | payer MEDICARE, SELFPAY ==
[2025-04-24 08:07] VITALS: BP 114/66; PULSE 78; RESP 16; TEMP 36.2; O2SAT 100; BMI 16.9
[2025-04-24] MEDS: 0.9 % NaCl (Sterile) Posiflush 10 mL IV (08:17)
[2025-04-24 08:46] VITALS: BP 111/60; PULSE 72; RESP 16; TEMP 36.1; O2SAT 100
[2025-04-24 09:46] VITALS: BP 116/70; PULSE 71; RESP 16; TEMP 35.9; O2SAT 100
[2025-04-24 10:27] VITALS: BP 120/63; PULSE 81; RESP 16; TEMP 36.1; O2SAT 100
== END 2025-04-24 23:59 | disposition home or self-care (01) ==
LOC: MEDOUTP 07:46
PROVIDERS: PCP Family Medicine; Referring Provider Internal Medicine Hematology & Oncology; Visit Provider Internal Medicine Hematology & Oncology
DX: D61.818 Other pancytopenia (principal)
CPT/HCPCS: 36430; 86850; 86900; 86901; P9040

== ENCOUNTER 2025-05-05 11:57 | Outpatient (CLI) | payer MEDICARE, SELFPAY ==
[2025-05-05 12:19] VITALS: BP 110/62; PULSE 68; RESP 16; TEMP 36.4; O2SAT 100; BMI 16.8
[2025-05-05 12:49] VITALS: BP 120/53; PULSE 62; RESP 16; TEMP 36.2; O2SAT 100
[2025-05-05 13:00] VITALS: BP 110/56; PULSE 55; RESP 16; TEMP 36.3; O2SAT 98
== END 2025-05-05 23:59 | disposition home or self-care (01) ==
LOC: MEDOUTP 11:57
PROVIDERS: PCP Family Medicine; Referring Provider Internal Medicine Hematology & Oncology; Visit Provider Internal Medicine Hematology & Oncology
DX: D61.818 Other pancytopenia (principal)
CPT/HCPCS: 36430; 86900; 86901; 86965; P9035; A4216

== ENCOUNTER 2025-05-07 15:34 | Emergency (ER) | payer MEDICARE, SELFPAY ==
[2025-05-07] VITALS (9 sets, daily range): BP systolic 95–126; BP diastolic 53–77; PULSE 64–77; RESP 14–20; TEMP 36.3–36.7; O2SAT 99–100; BMI 18.3
--- NOTE | 2025-05-07 16:26 | PCA ---
REACHED OUT TO DR POLANCO OFFICE @ [id number]
--- NOTE | 2025-05-07 17:44 | EX.ED.DYSGE1 ---
HPI History of Present Illness Chief Complaint: Abn Labs Informant: patient and spouse/S.O. 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 She gets periodic transfusions at the infusion center, she had some routine blood counts yesterday that came back today showing hemoglobin 7.1 and platelets of 15 and she was sent here to get transfusions of both because the infusion center is closed because of the upcoming holiday tomorrow Sunday. She states she has been feeling well/fine. She denies any fevers, she denies any bleeding from anywhere. [facility] Medical History Leukemia Anxiety GERD (gastroesophageal reflux disease) Hypothyroid Rheumatoid arthritis Home Medications ?Medication ?Instructions ?Recorded ?Last Taken ?Type folic acid 1 mg tablet 1 mg PO QDAY 12/16/24 Unknown History levetiracetam 500 mg 500 mg PO DAILY 12/16/24 Unknown History tablet,extended release 24 hr (Keppra XR) pantoprazole 40 mg tablet,delayed 40 mg PO DAILY 12/16/24 Unknown History release potassium 20 mg chewable tablet 20 mg PO BID 12/16/24 Unknown History gabapentin 100 mg capsule 300 mg PO TID 02/17/25 Unknown History acyclovir 200 mg capsule 400 mg PO BID 03/03/25 Unknown History cyclobenzaprine 10 mg tablet 10 mg PO TID PRN PRN muscle spasm 03/03/25 Unknown History ergocalciferol (vitamin D2) 1,250 1,250 mcg PO QWEEK 03/03/25 Unknown History mcg (50,000 unit) capsule hydrocortisone-pramoxine 2.5 %-1 % 1 applic NC BID 03/03/25 Unknown History rectal cream levofloxacin 500 mg tablet 500 mg PO DAILY 03/03/25 Unknown History loratadine-pseudoephedrine ER 10 1 tab PO DAILY 03/03/25 Unknown History mg-240 mg tablet,extended [id number] (Loratadine-D) lorazepam 0.5 mg tablet (Ativan) 0.5 mg PO BID PRN anxiety 03/03/25 Unknown History ondansetron 8 mg disintegrating 8 mg PO Q8H PRN nausea and vomiting 03/03/25 Unknown History tablet polyethylene glycol 3350 17 17 g PO DAILY PRN constipation 03/03/25 Unknown History gram/dose oral powder (Miralax) posaconazole 100 mg tablet,delayed 300 mg PO DAILY 03/03/25 Unknown History release (Noxafil) Held on 03/06/25. Instructions: per md order sulfamethoxazole 800 1 tab PO MOWEFR 03/03/25 Unknown History mg-trimethoprim 160 mg tablet (Bactrim DS) Held on 03/06/25. Instructions: per md venetoclax 100 mg tablet 100 mg PO DAILY 03/03/25 Unknown History (Venclexta) Held on 03/06/25. Instructions: per md order Allergy/AdvReac Type Severity Reaction Status Date / Time mold Allergy Intermediate Shortness Verified 05/07/25 15:36 of breath hydrocodone (From Vicodin) AdvReac Intermediate Nausea Verified 05/07/25 15:36 oxycodone (From Percocet) AdvReac Intermediate Nausea Verified 05/07/25 15:36 Social History Smoking Status: Former smoker ROS ROS ED Constitutional Constitutional ED: Denies chills or fever(s) Eyes Eyes: Denies change in vision or diplopia ENT ENT ED: Denies rhinorrhea or sore throat Cardiovascular Cardiovascular: Denies chest pain or palpitations Respiratory/Chest Respiratory/Chest: Denies cough or dyspnea Gastrointestinal Gastrointestinal: Denies abdominal pain, diarrhea, nausea or vomiting Genitourinary Genitourinary ED: Denies dysuria or hematuria Musculoskeletal Musculoskeletal: Denies back pain or neck pain Integumentary Denies abscess or rash Neurologic Neurologic: Denies headache(s), paresthesias or weakness Psychiatric Psychiatric: Denies anxiety or suicidal thoughts EXAM Physical Exam Const Vital Signs: 05/07/25 15:36 05/07/25 15:58 05/07/25 16:35 Temperature 97.3 F L Temperature Source Temporal Pulse Rate 69 64 Respiratory Rate 20 H 15 Respiratory Effort Normal Non-Labored Respiratory Pattern Normal Blood Pressure 126/70 H 110/58 L Blood Pressure Mean 88 75 Pulse Ox 100 100 Oxygen Delivery Method Room Air Room Air 05/07/25 17:26 Temperature Temperature Source Pulse Rate 71 Respiratory Rate 20 H Respiratory Effort Respiratory Pattern Blood Pressure 118/59 L Blood Pressure Mean 78 Pulse Ox 100 Oxygen Delivery Method Room Air Positive well nourished and well developed General Appearance ED: well developed and NAD HEENT Reports moist mucous membranes normocephalic and atraumatic Eyes PERRL and EOMs intact bilaterally Neck full ROM and supple Chest Wall Chest Narrative: Upper chest Mediport site benign Resp normal respiratory effort and clear to auscultation bilaterally Cardio regular rate, regular rhythm and no murmurs Rate: Negative for tachycardic GI non-tender and non-distended Auscultation: normoactive bowel sounds Palpation: soft Back/Spine no CVA tenderness General Back: other FROM Extremity normal to inspection General Extremety ED: Negative for edema, pulses abnormal or tenderness General Extremity: Negative for edema or pulses abnormal Neuro oriented x3, CN's II-XII intact bilaterally and no sensory deficits noted Sensorium / Orientation: awake and alert Motor Exam: strength 5/5 throughout Skin no rashes or lesions noted and no wounds Skin Narrative: No petechial rash MDM MDM MDM Narrative Medical decision making narrative: I discussed with [facility] hematology/oncology on-call for Dr. De Leon, who advised that we order leukoreduced and irradiated packed red blood cell x 1 and irradiated platelet x 2 to transfuse which was done. History & Record Review Additional record(s) reviewed:: Prior labs Lab Data Attestation: I reviewed the patient's lab results. Labs: Laboratory Results - last 24 hr 05/07/25 17:22 Crossmatch See Detail Discharge Plan Triage Chief Complaint: Abn Labs ED Provider: Chepe Wilkinson Dx/Rx/DC Orders Clinical Impression: Anemia, Thrombocytopenia due to drugs, AML (acute myelogenous leukemia) Instructions: Blood Transfusion Adult Dc Prescriptions: No Action gabapentin 100 mg capsule 300 mg PO TID levetiracetam [Keppra XR] 500 mg tablet extended release 24 hr 500 mg PO DAILY folic acid 1 mg tablet 1 mg PO QDAY pantoprazole 40 mg tablet,delayed release (DR/EC) 40 mg PO DAILY potassium 20 mg tablet,chewable 20 mg PO BID acyclovir 200 mg capsule 400 mg PO BID levofloxacin 500 mg tablet 500 mg PO DAILY lorazepam [Ativan] 0.5 mg tablet 0.5 mg PO BID PRN (Reason: anxiety) posaconazole [Noxafil] 100 mg tablet,delayed release (DR/EC) 300 mg PO DAILY sulfamethoxazole-trimethoprim [Bactrim DS] 800-160 mg tablet 1 tab PO MOWEFR Venclexta 100 mg tablet 100 mg PO DAILY cyclobenzaprine 10 mg tablet 10 mg PO TID PRN PRN (Reason: muscle spasm) hydrocortisone-pramoxine 2.5-1 % cream 1 applic NC BID Loratadine-D 10-240 mg tablet extended release 24 hr 1 tab PO DAILY ergocalciferol (vitamin D2) 1,250 mcg (50,000 unit) capsule 1,250 mcg PO QWEEK polyethylene glycol 3350 [Miralax] 17 gram/dose powder 17 g PO DAILY PRN (Reason: constipation) ondansetron 8 mg tablet,disintegrating 8 mg PO Q8H PRN (Reason: nausea and vomiting) Rx Instructions: 1st dose 1-2 hr before radiation Primary Care Provider: Kamar Thomas Referrals: Ayden De Leon DO [Med Staff - Active Staff] - Print Language: Kittitian Disposition Disposition: Home, Self Care
== END 2025-05-07 21:34 | disposition home or self-care (01) ==
PROVIDERS: Emergency Provider Emergency Medicine; PCP Family Medicine; Visit Provider Emergency Medicine
DX: D69.59 Other secondary thrombocytopenia (principal); C92.00 Acute myeloblastic leukemia, not having achieved remission; Z94.81 Bone marrow transplant status; Z87.891 Personal history of nicotine dependence; Z53.29 Procedure and treatment not carried out because of patient's decision for other reasons; K21.9 Gastro-esophageal reflux disease without esophagitis; T45.1X5A Adverse effect of antineoplastic and immunosuppressive drugs, initial encounter
CPT/HCPCS: 86850; 86900; 86901; 99282; P9040; A4216

== ENCOUNTER 2025-05-13 07:31 | Outpatient (CLI) | payer MEDICARE, SELFPAY ==
[2025-05-13 07:59] VITALS: BP 129/49; PULSE 67; RESP 16; TEMP 36.4; O2SAT 94
[2025-05-13 08:28] VITALS: BP 123/58; PULSE 67; RESP 16; TEMP 36.4; O2SAT 95
[2025-05-13 08:43] VITALS: BP 122/49; PULSE 66; RESP 16; TEMP 36.3; O2SAT 100
== END 2025-05-13 23:59 | disposition home or self-care (01) ==
LOC: MEDOUTP 07:31
PROVIDERS: PCP Family Medicine; Referring Provider Internal Medicine Hematology & Oncology; Visit Provider Internal Medicine Hematology & Oncology
DX: D61.818 Other pancytopenia (principal)
CPT/HCPCS: 36430; 86900; 86901; 86965; P9035; A4216

== ENCOUNTER 2025-05-19 11:42 | Outpatient (CLI) | payer MEDICARE, SELFPAY ==
[2025-05-19 12:22] VITALS: BP 123/53; PULSE 63; RESP 16; TEMP 36.1; O2SAT 100; BMI 18.2
[2025-05-19 12:51] VITALS: BP 116/62; PULSE 57; RESP 14; TEMP 36.1; O2SAT 97
[2025-05-19 14:41] VITALS: BP 115/56; PULSE 64; RESP 14; TEMP 36.3; O2SAT 100
== END 2025-05-19 23:59 | disposition home or self-care (01) ==
LOC: MEDOUTP 11:42
PROVIDERS: PCP Family Medicine; Referring Provider Internal Medicine Hematology & Oncology; Visit Provider Internal Medicine Hematology & Oncology
DX: D61.818 Other pancytopenia (principal)
CPT/HCPCS: 36430; 86850; 86900; 86901; P9040; A4216

== ENCOUNTER 2025-06-05 08:53 | Outpatient (CLI) | payer MEDICARE, SELFPAY ==
[2025-06-05 09:05] VITALS: BP 104/45; PULSE 60; RESP 16; TEMP 36.9; BMI 18.1
[2025-06-05 09:46] VITALS: BP 96/76; PULSE 65; RESP 16; TEMP 36.8; O2SAT 96
[2025-06-05 10:46] VITALS: BP 116/35; PULSE 62; RESP 16; TEMP 37.3; O2SAT 100
== END 2025-06-05 23:59 | disposition home or self-care (01) ==
LOC: MEDOUTP 08:53
PROVIDERS: PCP Family Medicine; Referring Provider Internal Medicine Hematology & Oncology; Visit Provider Internal Medicine Hematology & Oncology
DX: D61.818 Other pancytopenia (principal)
CPT/HCPCS: 36430; 86850; 86900; 86901; P9040; A4216

== ENCOUNTER → 2025-06-10 | Outpatient (CLI) | payer MEDICARE, SELFPAY ==
[2025-06-10] MEDS: Pentamidine Isethionate 300 MG, Water For Injection,Sterile 6 ML INHALATION (08:06)
== END | disposition home or self-care (01) ==
LOC: PSN 07:26
PROVIDERS: PCP Family Medicine; Referring Provider Internal Medicine Hematology & Oncology; Visit Provider Internal Medicine Hematology & Oncology
DX: C92.00 Acute myeloblastic leukemia, not having achieved remission (principal); T45.1X5A Adverse effect of antineoplastic and immunosuppressive drugs, initial encounter
CPT/HCPCS: 94642

== ENCOUNTER → 2025-07-08 | Outpatient (CLI) | payer MEDICARE, SELFPAY ==
[2025-07-08] MEDS: Pentamidine Isethionate 300 MG, Water For Injection,Sterile 6 ML INHALATION (08:38)
== END | disposition home or self-care (01) ==
LOC: PSN 08:23
PROVIDERS: PCP Family Medicine; Referring Provider Internal Medicine Hematology & Oncology; Visit Provider Internal Medicine Hematology & Oncology
DX: C92.00 Acute myeloblastic leukemia, not having achieved remission (principal); D61.810 Antineoplastic chemotherapy induced pancytopenia; T45.1X5A Adverse effect of antineoplastic and immunosuppressive drugs, initial encounter
CPT/HCPCS: 94642

== ENCOUNTER → 2025-08-05 | Outpatient (CLI) | payer MEDICARE, SELFPAY ==
[2025-08-05] MEDS: Pentamidine Isethionate 300 MG, Water For Injection,Sterile 6 ML INHALATION (08:31)
== END | disposition home or self-care (01) ==
PROVIDERS: PCP Family Medicine; Referring Provider Internal Medicine Hematology & Oncology; Visit Provider Internal Medicine Hematology & Oncology
DX: C92.00 Acute myeloblastic leukemia, not having achieved remission (principal); D61.810 Antineoplastic chemotherapy induced pancytopenia; T45.1X5A Adverse effect of antineoplastic and immunosuppressive drugs, initial encounter
CPT/HCPCS: 94642